=== PATIENT | female | born 1995 | race Caucasian/White ===

== ENCOUNTER 2016-12-13 18:52 | Emergency (ER) | payer SELFPAY ==
[~2016-12-13] VITALS: Ht 157.5 cm; Wt 74.9 kg
[2016-12-13] MEDS ORDERED: ONDANSETRON 2MG/ML, 2ML ONE (19:24)
[2016-12-13] MEDS ORDERED: MAALOX/HYOSCYAMINE/LIDOCAINE 45 ML BOTTLE ONE (19:24)
[2016-12-13] MEDS ORDERED: SODIUM CHLORIDE FLUSH 10ML SYR IVF ONE (19:30)
[2016-12-13] MEDS ORDERED: MAALOX/HYOSCYAMINE/LIDOCAINE 45 ML BOTTLE PO ONE (19:30)
[2016-12-13] MEDS ORDERED: ONDANSETRON 2MG/ML, 2ML IVPush ONE (19:30)
[2016-12-13] MEDS ORDERED: SODIUM CHLORIDE 0.9% 1,000ML IVBOLUS ONE (19:30)
[2016-12-13 19:43] LABS: BLOOD UREA NITROGEN 12 mg/dL (7-18)
[2016-12-13 19:49] LABS: ASPARTATE AMINO TRANSFERASE 15 U/L (15-37)
[2016-12-13 21:22] VITALS: BP 120/86
== END 2016-12-13 21:25 | disposition home or self-care (01) ==
LOC: ED 21:19
DX: K29.00 Acute gastritis without bleeding (principal); K25.3 Acute gastric ulcer without hemorrhage or perforation; R10.13 Epigastric pain
CPT/HCPCS: 36415; 74020; 80053; 81003; 83690; 84703; 85025; 86677; 96361; 96374; 99285; J2405; J7030